=== PATIENT | male | born 1985 | race Caucasian/White ===

== ENCOUNTER 2023-07-17 06:39 | Emergency (ER) | payer OTHER ==
[~2023-07-17] VITALS: Ht 177.8 cm; Wt 84.6 kg
[~2023-07-17 06:39] MED LIST: BENADRYL25 MG PO; DILTIAZEM HCL10 GM TOP; FLAGYL500 MG PO; HYDROCODON-ACE1 EA10 PO; IBUPROFEN600 MG PO; LEXAPRO10 MG PO; QVAR7.3 G1 INH; VENTOLIN HFA18 GM INH
[2023-07-17 07:15] LABS: BASOPHILS 0.7 % (0-2); HEMATOCRIT 45.4 % (35.0-50.0); LYMPHOCYTES 33.6 % (24-44); MCH 27.2 (27-36); MCHC 33.1 g/dl (30-36); MCV 82.2 fl (81-99); MONOCYTES 9.5 % (0-12); NEUTROPHILS 49.2 % (39-80); PLATELET COUNT 193 K/uL (140-440); RBC 5.53 M/ul (4.3-5.7); RDW 13.6 (10.5-15.0)
[2023-07-17 07:19] LABS: INR 0.93 (0.80-1.30); PROTIME 12.1 Sec (11.2-14.2)
[2023-07-17 07:24] LABS: ALBUMIN 3.8 g/dL (3.4-5.0); ALBUMIN/GLOBULIN RATIO 1.03 (1.1-2.4); ANION GAP 14.1 (7-21); BILIRUBIN, TOTAL 0.3 ng/dL (0.2-1.0); BUN/CREATININE RATIO 12.39 (6.0-28.6); CALCIUM 8.5 mg/dL (8.5-10.1); CREATININE, SERUM 1.21 mg/dL (0.70-1.30); POTASSIUM 4.1 mmol/L (3.5-5.1); PROTEIN, TOTAL 7.5 g/dL (6.4-8.2)
[2023-07-17 07:50] LABS: BILIRUBIN, URINE NEGATIVE (negative); BLOOD/HGB, URINE NEGATIVE (Negative); KETONE, URINE NEGATIVE (Negative); LEUK ESTERASE, URINE NEGATIVE (negative); NITRITE, URINE NEGATIVE (negative)
[2023-07-17 08:04] LABS: ABO O; ANTIBODY SCREEN NEGATIVE; RH POSITIVE
[2023-07-17] MEDS ORDERED: DICYCLOMINE HCL20 MG PO (08:41)
[2023-07-17 09:06] VITALS: BP 113/74
== END 2023-07-17 09:10 | disposition home or self-care (01) ==
LOC: ED 06:39
PROVIDERS: Family Medicine
DX: K58.1 Irritable bowel syndrome with constipation (principal); Z88.0 Allergy status to penicillin; Z87.891 Personal history of nicotine dependence
CPT/HCPCS: 36415; 74177; 80053; 81003; 83690; 85025; 85610; 86850; 86900; 86901; 96374; 96375; 99284-25; A9270; J2270; J2405; Q9967

== ENCOUNTER 2023-08-28 18:21 | Emergency (ER) | payer OTHER ==
[~2023-08-28] VITALS: Ht 177.8 cm; Wt 87.5 kg
[~2023-08-28 18:21] MED LIST changes: +DICYCLOMINE HCL20 MG PO
[2023-08-28 19:03] LABS: BASOPHILS 0.6 % (0-2); EOSINOPHILS 5.7 % (0-6); HEMATOCRIT 43.5 % (35.0-50.0); HEMOGLOBIN 14.2 g/dL (12.0-18.0); LYMPHOCYTES 35.2 % (24-44); MCH 26.9 (27-36); MCHC 32.7 g/dl (30-36); MCV 82.3 fl (81-99); MONOCYTES 11.4 % (0-12); NEUTROPHILS 47.1 % (39-80); PLATELET COUNT 205 K/uL (140-440); RBC 5.29 M/ul (4.3-5.7); RDW 14.7 (10.5-15.0)
[2023-08-28] MEDS ORDERED: LACTATED RINGER'S 1,000 ML IV ONE (19:15)
[2023-08-28 19:17] LABS: ALBUMIN/GLOBULIN RATIO 1.03 (1.1-2.4); BILIRUBIN, TOTAL 0.3 ng/dL (0.2-1.0); BUN/CREATININE RATIO 11.94 (6.0-28.6); CALCIUM 8.6 mg/dL (8.5-10.1); CREATININE, SERUM 1.34 mg/dL (0.70-1.30); PROTEIN, TOTAL 7.9 g/dL (6.4-8.2)
[2023-08-28 20:01] LABS: BILIRUBIN, URINE NEGATIVE (negative); BLOOD/HGB, URINE NEGATIVE (Negative); KETONE, URINE NEGATIVE (Negative); LEUK ESTERASE, URINE NEGATIVE (negative); NITRITE, URINE NEGATIVE (negative); PH, URINE 6.5 (5-7)
[2023-08-28] MEDS ORDERED: MESALAMINE 400 MG CAPCR PO ONE (20:15)
[2023-08-28] MEDS ORDERED: MESALAMINE800 MG PO (20:22)
[2023-08-28] MEDS ORDERED: KETOROLAC TROMETHAMINE 30 MG/ML VIAL IV ONE (20:30)
[2023-08-28] MEDS ORDERED: GAS-X125 MG PO (20:36)
[2023-08-28] MEDS ORDERED: SIMETHICONE 125 MG TABLET CHEWABLE PO ONE (20:45)
== END 2023-08-28 20:45 | disposition home or self-care (01) ==
LOC: ED 18:21
PROVIDERS: Emergency Medicine
DX: R10.9 Unspecified abdominal pain (principal); Z87.19 Personal history of other diseases of the digestive system; Z87.891 Personal history of nicotine dependence; Z88.0 Allergy status to penicillin
CPT/HCPCS: 36415; 80053; 81003; 85025; 96361; 96374; 99284-25; A9270; J1885; J7121